=== PATIENT | female | born 1970 | race Caucasian/White ===

== ENCOUNTER 2017-12-28 19:01 | Emergency (ER) | payer OTHER ==
[~2017-12-28] VITALS: Ht 167.6 cm; Wt 79.4 kg
[~2017-12-28 19:01] MED LIST: AFRIN NASAL SPR30 ML NASAL; BACTRIM DS TAB1 EAC1 ORAL; CHLOROTHIAZIDE250 MG PO; CYCLOBENZAPRINE10 MG ORAL; IBUPROFEN600 MG ORAL; NAPROSYN500 M1 ORAL; TRAMADOL HCL50 MG ORAL; VICODIN 5-5001 EACH PO; [UNRECOGNIZED DRUG - REMARK]
--- NOTE | 2017-12-28 19:19 | Emergency Room Report ---
History of Present Illness General Chief Complaint: Nosebleed Source: Patient, Medical Record Present Illness HPI Patient presents with complaints of right-sided epistaxis Started earlier prior to arrival That has now subsided after minimal pressure Patient also reports that she was having a headache and that she feels her blood pressure is likely high Denies any change in medications recently she reports that her physician has told her that her blood pressure is high because she worse at night times Denies any chest pain or shortness of breath denies any focal weakness Allergies: Coded Allergies: No Known Allergies (Unverified , 10/20/12) Patient History Past Medical History: see triage record Pertinent Family History: none Last Menstrual Period: 12/20/17 Reviewed Nursing Documentation: PMH: Agreed; PSxH: Agreed Nursing Documentation-PMH Past Medical History: No History, Except For Hx Hypertension: Yes Hx Diabetes: Yes Review of Systems All Other Systems: negative except mentioned in HPI Physical Exam Vital Signs Date Time Temp Pulse Resp B/P (MAP) Pulse Ox O2 Delivery O2 Flow Rate FiO2 12/28/17 19:05 97.9 72 18 203/108 96 Room Air 97.9 Sp02 EP Interpretation: reviewed, normal General Appearance: well appearing, no apparent distress Head: normocephalic, atraumatic Eyes: bilateral eye PERRL, bilateral eye EOMI ENT: hearing grossly normal, normal pharynx, TMs + canals normal, uvula midline , other - Evidence of some crusting in the right anterior nasal chamber no signs of active hemorrhage no septal hematoma Neck: full range of motion, supple, no meningismus, no bony tend Respiratory: lungs clear, normal breath sounds, no rhonchi, no respiratory distress, no retraction, no accessory muscle use Cardiovascular #1: normal peripheral pulses, regular rate, rhythm, no edema, no gallop, no JVD, no murmur Gastrointestinal: normal bowel sounds, non tender, soft, no mass, no organomegaly, non-distended, no guarding, no hernia, no pulsatile mass, no rebound Genitourinary: no CVA tenderness Musculoskeletal: normal inspection Neurologic: oriented x3, responsive, evs attendant III-XII nml as tested, motor strength/ tone normal, sensory intact Psychiatric: mood/affect normal Skin: normal color, no rash, warm/dry, palpation normal Lymphatic: normal inspection, no adenopathy Procedures Additional Procedure Procedure Narrative Evaluation of the right nostril reveals some crusting on the anterior nasal area No active hemorrhage is seen Patient did have silver nitrate applied to the area Tolerated the procedure well Medical Decision Making Diagnostic Impression: Primary Impression: Epistaxis Additional Impression: Hypertension ER Course Patient's epistaxis is controlled as noted in the note Patient remained otherwise a symptomatically that Headache has also improved Daughter now arrives reports that the patient usually has emotional upset when her blood pressure goes up and similar episode happened again prior to this episode Patient's blood pressure is improving Headache is also improved patient has had blood work in the computer from past and this was not repeated Patient has appropriate outpatient follow-up she was recommended and encouraged to document blood pressure 2-3 times a day in order to follow-up with primary physician for possible change in medication Rhythm Strip Diag. Results EP Interpretation: yes Rate: 77 Rhythm: NSR, no PVC's, no ectopy Last Vital Signs Date Time Temp Pulse Resp B/P (MAP) Pulse Ox O2 Delivery O2 Flow Rate FiO2 4/18 19:05 97.9 72 18 203/108 96 Room Air 97.9 Status: improved Disposition: HOME, SELF-CARE Condition: Improved Patient Instructions: Nosebleed, [id number] Additional Instructions: Patient is provided with the discharge instructions notified to follow up with primary doctor in the next 2-3 days otherwise return to the er with any worsening symptoms. Please note that this report is being documented using [employer] technology. This can lead to erroneous entry secondary to incorrect interpretation by the dictating instrument. Zayra Cortes DO Dec 28, 2017 19:19
[2017-12-28 19:20] VITALS: BP 199/100
[2017-12-28] MEDS ORDERED: Silver Nitrate Stick TOPIC ONE ×2 (19:27→19:30)
[2017-12-28] MEDS ORDERED: Enalapril 5mg tab ORAL ONE (19:30)
[2017-12-28 20:11] VITALS: BP 190/95
== END 2017-12-28 20:45 | disposition home or self-care (01) ==
LOC: EMR 20:38
DX: R04.0 Epistaxis (principal); I10 Essential (primary) hypertension; E11.9 Type 2 diabetes mellitus without complications
CPT/HCPCS: 99283

== ENCOUNTER 2017-12-30 09:05 | Emergency (ER) | payer OTHER ==
[~2017-12-30] VITALS: Ht 154.9 cm; Wt 78.9 kg
[2017-12-30 09:32] VITALS: BP 174/93
[2017-12-30] MEDS ORDERED: METFORMIN HCL500 M4 ORAL (09:37)
--- NOTE | 2017-12-30 09:47 | Emergency Room Report ---
History of Present Illness General Chief Complaint: Nosebleed Source: Patient Present Illness HPI 47-year-old female history of hypertension presenting with right-sided epistaxis and chest pressure. Patient states that for the last 4 days she has intermittently had some bleeding from her right nostril. That stopped spontaneously. Patient states that she has on aspirin but the last and to take it was yesterday. Also complaining of intermittent chest pains the last 4 days , comes and goes, nonexertional. No shortness of breath no palpitations. No history of DVT or PE. Last stress test unknown. No fever chills cough nausea vomiting diarrhea Allergies: Coded Allergies: No Known Allergies (Unverified , 10/20/12) Patient History Past Medical History: see triage record Past Surgical History: none Pertinent Family History: none Reviewed Nursing Documentation: PMH: Agreed; PSxH: Agreed Nursing Documentation-PMH Past Medical History Deferred: Pt Cognitively Impaired Hx Hypertension: Yes Hx Diabetes: Yes Review of Systems All Other Systems: negative except mentioned in HPI Physical Exam Vital Signs Date Time Temp Pulse Resp B/P (MAP) Pulse Ox O2 Delivery O2 Flow Rate FiO2 12/30/17 09:15 60 18 174/93 100 Room Air 12/30/17 09:32 98.2 98.2 Sp02 EP Interpretation: reviewed, normal General Appearance: normal inspection, well appearing, no apparent distress, alert, GCS 15, non-toxic Head: normocephalic, atraumatic Eyes: bilateral eye normal inspection, bilateral eye PERRL, bilateral eye EOMI ENT: other - Right nostril with dried blood, no active bleeding, no blood in the posterior pharynx Neck: normal inspection, full range of motion, supple Respiratory: normal inspection, lungs clear, normal breath sounds, no respiratory distress, no retraction, no wheezing, speaking full sentences, chest symmetrical Cardiovascular #1: normal inspection, regular rate, rhythm, no edema, normal capillary refill Cardiovascular #2: 2+ radial (R), 2+ radial (L) Gastrointestinal: normal inspection, non tender, soft, non-distended, no guarding Musculoskeletal: normal inspection, back normal, normal range of motion, non- tender Neurologic: normal inspection, alert, oriented x3, responsive, motor strength/ tone normal, sensory intact, normal gait, speech normal Psychiatric: normal inspection, judgement/insight normal, memory normal Skin: normal inspection, normal color, no rash, warm/dry, well hydrated, normal turgor Medical Decision Making Diagnostic Impression: Primary Impression: Mild epistaxis Additional Impression: Chest pressure ER Course 47 yo F with epistaxis, and chest pressure DDX: Chest pain, costochondritis ACS vs. CHF vs. pneumonia vs. gastritis/GERD vs. pneumothorax Perc negative Plan: IV access, obtain labs including troponin, EKG, CXR Hold aspirin due to epistaxis, and patient on in severe chest pain ER course: Patient remained chest pain free during ED stay. Nasal clip placed on patient, although patient did not have any active epistaxis stable for DC home Disposition: Patient will be discharged to home. Strict precautions discussed with patient on when to emergently return to the ED : this includes worsening/severe chest pain, palpitations, shortness of breath, syncopal episodes, fever or chills, which may indicate severe illness. Patient verbalized understanding. Patient instructed to follow up with their PMD within the next 2 days. Patient also instructed to follow up with a waste/materials exchange specialist within 2 days for possible outpatient stress test. Patient agrees with plan. Please note that this Emergency Department Report was dictated using [employer] technology software, occasionally this can lead to erroneous entry secondary to interpretation by the dictation equipment. EKG Diagnostic Results EP Interpretation: Yes Rate: normal Rhythm: NSR ST Segments: No acute changes ASA given to patient: no Rhythm Strip EP Interpretation: Yes Rate: 70 Rhythm: NSR, no PVCs, no ectopy Chest X-ray CXR: Ordered: Yes 1 view Indication: Chest pain EP interpretation: Yes Interpretation: mild cardiomegaly Impression: mild cardiomegaly Electronically signed by Sheron Dallas MD Laboratory Tests Test 12/30/17 09:46 White Blood Count 5.9 K/UL (4.8-10.8) Red Blood Count 4.94 M/UL (4.20-5.40) Hemoglobin 13.9 G/DL (12.0-16.0) Hematocrit 41.3 % (37.0-47.0) Mean Corpuscular Volume 84 FL (80-99) Mean Corpuscular Hemoglobin 28.2 PG (27.0-31.0) Mean Corpuscular Hemoglobin Concent 33.7 G/DL (32.0-36.0) Red Cell Distribution Width 11.9 % (11.6-14.8) Platelet Count 342 K/UL (150-450) Mean Platelet Volume 7.8 FL (6.5-10.1) Neutrophils (%) (Auto) 55.1 % (45.0-75.0) Lymphocytes (%) (Auto) 31.2 % (20.0-45.0) Monocytes (%) (Auto) 8.5 % (1.0-10.0) Eosinophils (%) (Auto) 3.6 % (0.0-3.0) H Basophils (%) (Auto) 1.7 % (0.0-2.0) Urine Color Pale yellow Urine Appearance Slightly cloudy Urine pH 7 (4.5-8.0) Urine Specific Kyle 1.005 (1.005-1.035) Urine Protein Negative (NEGATIVE) Urine Glucose (UA) Negative (NEGATIVE) Urine Ketones Negative (NEGATIVE) Urine Occult Blood Negative (NEGATIVE) Urine Nitrite Negative (NEGATIVE) Urine Bilirubin Negative (NEGATIVE) Urine Urobilinogen Normal MG/DL (0.0-1.0) Urine Leukocyte Esterase 3+ (NEGATIVE) H Urine RBC 0-2 /HPF (0 - 2) Urine WBC 5-10 /HPF (0 - 2) H Urine Squamous Epithelial Cells Few /LPF (NONE/OCC) Urine Bacteria Occasional /HPF (NONE) Sodium Level 139 MMOL/L (136-145) Potassium Level 3.5 MMOL/L (3.5-5.1) Chloride Level 104 MMOL/L (98-107) Carbon Dioxide Level 29 MMOL/L (21-32) Blood Urea Nitrogen 17 mg/dL (7-18) Creatinine 0.6 MG/DL (0.55-1.30) Estimate Glomerular Filtration Rate > 60 mL/min (>60) Glucose Level 122 MG/DL (74-106) H Calcium Level 8.6 MG/DL (8.5-10.1) Total Bilirubin 0.3 MG/DL (0.2-1.0) Aspartate Amino Transferase (AST) 23 U/L (15-37) Alanine Aminotransferase (ALT) 28 U/L (12-78) Alkaline Phosphatase 124 U/L (46-116) H Troponin I 0.000 ng/mL (0.000-0.056) Pro-B-Type Natriuretic Peptide 49 pg/mL (0-125) Total Protein 7.3 G/DL (6.4-8.2) Albumin 3.5 G/DL (3.4-5.0) Globulin 3.8 g/dL Albumin/Globulin Ratio 0.9 (1.0-2.7) L Last Vital Signs Date Time Temp Pulse Resp B/P (MAP) Pulse Ox O2 Delivery O2 Flow Rate FiO2 12/30/17 09:32 98.2 18 174/93 100 Room Air 98.2 12/30/17 09:15 60 Disposition: HOME, SELF-CARE Condition: Improved Referrals: [facility],REFERRING (PCP) Patient Instructions: Noselars, [id number] Sheron Dallas M.D. Dec 30, 2017 09:47
[2017-12-30 10:08] LABS: APPEARANCE,URINE SLIGHTLY CLOUDY; BASOPHILS % (AUTO) 1.7 % (0.0-2.0); BILIRUBIN, URINE NEGATIVE (NEGATIVE); COLOR,URINE PALE YELLOW; EOSINOPHILS % (AUTO) 3.6 % (0.0-3.0); GLUCOSE, URINE (UA) NEGATIVE (NEGATIVE); HEMATOCRIT 41.3 % (37.0-47.0); HEMOGLOBIN 13.9 G/DL (12.0-16.0); KETONES,URINE NEGATIVE (NEGATIVE); LEUKOCYTE ESTERASE ,URINE 3+ (NEGATIVE); LYMPHOCYTES % (AUTO) 31.2 % (20.0-45.0); MEAN CORPUSCULAR VOLUME 84 FL (80-99); MONOCYTES % (AUTO) 8.5 % (1.0-10.0); NEUTROPHILS % (AUTO) 55.1 % (45.0-75.0); NITRITE,URINE NEGATIVE (NEGATIVE); PH,URINE 7 (4.5-8.0); PLATELET COUNT 342 K/UL (150-450); PROTEIN,URINE NEGATIVE (NEGATIVE); RED BLOOD COUNT 4.94 M/UL (4.20-5.40); RED CELL DISTRIBUTION WIDTH 11.9 % (11.6-14.8); UROBILINOGEN,URINE NORMAL MG/DL (0.0-1.0); WHITE BLOOD COUNT 5.9 K/UL (4.8-10.8)
[2017-12-30 10:20] VITALS: BP 149/83
[2017-12-30 10:26] LABS: ALANINE AMINOTRANSFERASE 28 U/L (12-78); ALBUMIN 3.5 G/DL (3.4-5.0); ALBUMIN/GLOBULIN RATIO 0.9 (1.0-2.7); ALKALINE PHOSPHATASE 124 U/L (46-116); ASPARTATE AMINO TRANSFERASE 23 U/L (15-37); BILIRUBIN,TOTAL 0.3 MG/DL (0.2-1.0); BLOOD UREA NITROGEN 17 mg/dL (7-18); CALCIUM 8.6 MG/DL (8.5-10.1); CARBON DIOXIDE 29 MMOL/L (21-32); CREATININE 0.6 MG/DL (0.55-1.30)
[2017-12-30 10:29] LABS: CHLORIDE 104 MMOL/L (98-107); POTASSIUM 3.5 MMOL/L (3.5-5.1); SODIUM 139 MMOL/L (136-145)
[2017-12-30 10:40] VITALS: BP 149/83
--- NOTE | 2017-12-30 10:52 | Diagnostic Imaging Report ---
Indication: Dyspnea Comparison: None A single view chest radiograph was obtained. Findings: Cardiomediastinal appearance is within normal limits for age. Pulmonary vascularity is appropriate. The diaphragmatic contour is smooth and costophrenic angles are sharp. No pleural effusions are identified. The bones are unremarkable. Impression: No acute findings
== END 2017-12-30 10:56 | disposition home or self-care (01) ==
LOC: EMR 09:29
DX: R04.0 Epistaxis (principal); R07.89 Other chest pain; E11.9 Type 2 diabetes mellitus without complications; I10 Essential (primary) hypertension
CPT/HCPCS: 36415; 71045; 80053; 81003; 83880; 84484; 85025; 93005; 99283

== ENCOUNTER 2019-12-07 03:15 | Emergency (ER) | payer OTHER ==
[~2019-12-07] VITALS: Ht 154.9 cm; Wt 70.3 kg
[~2019-12-07 03:15] MED LIST changes: +METFORMIN HCL500 M4 ORAL
[2019-12-07 03:24] VITALS: BP 194/117
[2019-12-07] MEDS ORDERED: AMOXICILLIN500 MG ORAL (03:37)
[2019-12-07] MEDS ORDERED: ACETAMINOPHEN-1 EAC1 ORAL (03:37)
[2019-12-07 03:44] VITALS: BP 194/117
--- NOTE | 2019-12-07 22:20 | Emergency Room Report ---
History of Present Illness General Chief Complaint: Toothache Source: Patient Present Illness HPI 49-year-old female presents ED for evaluation. Complaining of tooth pain. States she needs to go see a dentist but has not been able to yet. Pain is dull , 8 out of 10, nonradiating. Localized to left upper jaw. Denies fevers or chills. Has had pain for the last several weeks. No other aggravating relieving factors. Denies any other associated symptoms COVID-19 risk:Travel to affect: No Allergies: Coded Allergies: No Known Allergies (Unverified , 10/20/12) Patient History Past Medical History: DM, HTN Past Surgical History: none Pertinent Family History: none Social History: Denies: smoking, alcohol use, drug use Now: No Immunizations: UTD Reviewed Nursing Documentation: PMH: Agreed; PSxH: Agreed Nursing Documentation-PMH Hx Hypertension: Yes Hx Diabetes: Yes Review of Systems All Other Systems: negative except mentioned in HPI Physical Exam Vital Signs Date Time Temp Pulse Resp B/P (MAP) Pulse Ox O2 Delivery O2 Flow Rate FiO2 12/07/19 03:24 98.1 89 20 194/117 96 Room Air Sp02 EP Interpretation: reviewed, normal General Appearance: no apparent distress, alert, GCS 15, non-toxic Head: normocephalic, atraumatic Eyes: bilateral eye normal inspection, bilateral eye PERRL ENT: hearing grossly normal, normal pharynx, no angioedema, normal voice, other - multiple dental caries. cracked tooth in L upper jaw. no abscess Neck: full range of motion, supple/symm/no masses Respiratory: chest non-tender, lungs clear, normal breath sounds, speaking full sentences Cardiovascular #1: regular rate, rhythm, no edema Cardiovascular #2: 2+ carotid (R), 2+ carotid (L), 2+ radial (R), 2+ radial (L) , 2+ dorsalis pedis (R), 2+ dorsalis pedis (L) Gastrointestinal: normal bowel sounds, non tender, soft, non-distended, no guarding, no rebound Rectal: deferred Genitourinary: normal inspection, no CVA tenderness Musculoskeletal: back normal, normal range of motion, gait/station normal, non- tender Neurologic: alert, motor strength/tone normal, oriented x3, sensory intact, responsive, speech normal Psychiatric: judgement/insight normal, memory normal, mood/affect normal, no suicidal/homicidal ideation Reflexes: 3+ bicep (R), 3+ bicep (L), 3+ tricep (R), 3+ tricep (L), 3+ knee (R) , 3+ knee (L) Skin: no rash Lymphatic: no adenopathy Medical Decision Making Diagnostic Impression: Primary Impression: Toothache ER Course 49-year-old female presents ED complaining of tooth pain. Cracked tooth, dental abscess, cavity Patient placed on stretcher. After initial history, physical exam reveals a female in no distress. The tooth in question shows a crack but there is no pulp exposed. No surrounding abscess. No induration or swelling. I discussed findings with patient. Will discharge with prescription for antibiotics and pain meds. I will provide dental referrals. Safe for discharge for close outpatient follow-up Diagnosis- toothache Stable and discharged to home prescription for tylenol #3 and amoxicillin. Instructed to see dentist as a walk-in this week. Return to ED if symptoms recur or worse Last Vital Signs Date Time Temp Pulse Resp B/P (MAP) Pulse Ox O2 Delivery O2 Flow Rate FiO2 12/07/19 03:44 98.1 20 194/117 96 Room Air 12/07/19 03:24 65 Status: improved Disposition: HOME, SELF-CARE Condition: Stable Scripts Amoxicillin* (AMOXIL*) 500 Mg Capsule 500 MG ORAL THREE TIMES A DAY, #21 CAP Prov: Josh Greenwood MD 12/07/19 Acetaminophen With Codeine (T#3) (TYLENOL #3 TAB*) Y Tab 1 TAB ORAL Q8H PRN for For Pain for 3 Days, #12 TAB Prov: Josh Greenwood MD 12/07/19 Referrals: [facility],REFERRING (PCP) [facility] INFO: New Patient Screening: Mon- 8am-1pm Mon- 9am -5pm and Mon 2pm-5pm [facility](age 2-12) - Orthodontic Clinic - Hours: Mon,Mon,, 8:15am and 1pm (new patient screening), . 1pm. Emergency clinic Monday - Monday 8:30am and 1pm, . 1pm. *Call to check if clinic is open; No appointment necessary for the first visit ( new patient screening), Arrive 15-30 minutes early as it is first come, first serve. Patient Instructions: Dental Pain Josh Greenwood MD Dec 07, 2019 22:20
== END 2019-12-07 03:50 | disposition home or self-care (01) ==
LOC: EMR 03:47
DX: K08.89 Other specified disorders of teeth and supporting structures (principal); E11.9 Type 2 diabetes mellitus without complications; I10 Essential (primary) hypertension
CPT/HCPCS: 99282

== ENCOUNTER 2020-01-18 20:10 | Emergency (ER) | payer OTHER ==
[~2020-01-18] VITALS: Ht 154.9 cm; Wt 70.3 kg
[~2020-01-18 20:10] MED LIST changes: +ACETAMINOPHEN-1 EAC1 ORAL; +AMOXICILLIN500 MG ORAL
--- NOTE | 2020-01-18 20:35 | NUR ---
ED Nurse Note: Walked in to ER from home c/o bilat feet and hand itchiness x2days. does not present with redness or swelling. also states pain on bilat feet when walking 7/10 aching. AAO x4, VSS at this time
--- NOTE | 2020-01-18 20:51 | Diagnostic Imaging Report ---
EXAM: XR Chest, 1 View CLINICAL HISTORY: WEAK TECHNIQUE: Frontal view of the chest. COMPARISON: No relevant prior studies available. FINDINGS: Lungs: Unremarkable. No consolidation. Pleural space: Unremarkable. No pneumothorax. Heart: Unremarkable. No cardiomegaly. Mediastinum: Unremarkable. Bones/joints: Unremarkable. IMPRESSION: 1. No acute cardiopulmonary disease. 2. If there is continued concern recommend frontal and lateral chest radiographs or CT.
[2020-01-18] MEDS ORDERED: DiphenhydrAMINE & Zinc 28g Cream TOPIC ONE (21:15)
--- NOTE | 2020-01-18 21:15 | Emergency Room Report ---
History of Present Illness General Chief Complaint: Skin Rash/Abscess Source: Patient, Medical Record Present Illness HPI Disclaimer: Please note that this report is being documented using [employer] technology. This can lead to erroneous entry secondary to incorrect interpretation by the dictating instrument. HPI: 49-year-old female presents for evaluation of itching and swelling. She reports bilateral lower extremity swelling and itching over the feet over the past day. Also noted some swelling in the hands. Swelling is now resolved but itching persists. No chemical exposure, change in soaps, shampoos, socks or other obvious triggers. No history of allergies. He denies pain or injury in the extremities. Able to move all digits. Notes still some slight swelling in the hands but no itching in the hands. Swelling in the feet is now resolved. Denies history of CHF. PMH: Diabetes, depression PSH: Reviewed Allergies: Denies Social Hx: Denies Allergies: Coded Allergies: No Known Allergies (Unverified , 10/20/12) COVID-19 Screening Contact w/high risk pt: No Recent Travel to affected area: No Experienced COVID-19 symptoms?: No Nursing Documentation-PMH Hx Hypertension: Yes Hx Diabetes: Yes Review of Systems All Other Systems: negative except mentioned in HPI Physical Exam Vital Signs Date Time Temp Pulse Resp B/P (MAP) Pulse Ox O2 Delivery O2 Flow Rate FiO2 01/18/20 20:19 97.9 74 18 146/96 (113) 99 Room Air General: Awake and alert, no acute distress HEENT: NC/AT. EOMI. Resp: Normal work of breathing Skin: Intact. No abrasions, laceration or rash over the exposed skin. No excoriations, no blistering, no sloughing, Nikolsky negative. No erythema or warmth MSK: Normal tone and bulk. Moving all extremities. No obvious deformity. No lower extremity edema. 2+ PT pulses. No edema in the upper extremities. Full range of motion of the digits and wrist. Neuro: Awake and alert. Mentating appropriately Medical Decision Making Diagnostic Impression: Primary Impression: Itching ER Course 49-year-old female presents for evaluation of itching and swelling in the lower extremities and hands. Differential includes was not limited to dermatitis, cellulitis, abscess, allergic reaction, electrolyte abnormality, kidney failure , medication side effect to name a few. Labs were ordered prior to my evaluation of the patient. They have returned within normal limits. No evidence of fluid overload as evidenced by a normal BNP and troponin, no elevation in white count, electrolytes and kidney function within normal limits. Patient was given Benadryl cream with some improvement in her symptoms. Will prescribe additional Benadryl cream for pruritus. No evidence of cellulitis or erysipelas at this time. Do not believe she requires antibiotics however symptoms persist or if they suddenly change she should return to the emergency department for reevaluation. She understands and agrees with this treatment plan will be discharged home. Last Vital Signs Date Time Temp Pulse Resp B/P (MAP) Pulse Ox O2 Delivery O2 Flow Rate FiO2 01/18/20 20:19 97.9 74 18 146/96 (113) 99 Room Air Disposition: HOME, SELF-CARE Condition: Stable Scripts Diphenhydramine Hcl/Zinc Acet (BENADRYL ITCH STOPPING CRM) 28.3 Gm Cream..g. 28.3 GM TP TID for 5 Days, GM Prov: Josue Zhang MD 01/18/20 Referrals: [facility],REFERRING (PCP) Josue Zhang MD Jan 18, 2020 21:15
[2020-01-18 21:25] LABS: BASOPHILS % (AUTO) 1.3 % (0.0-2.0); EOSINOPHILS % (AUTO) 4.4 % (0.0-3.0); LYMPHOCYTES % (AUTO) 23.1 % (20.0-45.0); MEAN CORPUSCULAR VOLUME 87 FL (80-99); NEUTROPHILS % (AUTO) 58.2 % (45.0-75.0); PLATELET COUNT 365 K/UL (150-450); RED BLOOD COUNT 3.93 M/UL (4.20-5.40); RED CELL DISTRIBUTION WIDTH 12.3 % (11.6-14.8); WHITE BLOOD COUNT 6.4 K/UL (4.8-10.8)
[2020-01-18] MEDS ORDERED: BENADRYL ITCH28.3 G1 TP (21:40)
[2020-01-18 21:42] VITALS: BP 146/96
[2020-01-18 21:51] LABS: ANION GAP 8 mmol/L (5-15); BLOOD UREA NITROGEN 17 mg/dL (7-18); CALCIUM 8.7 MG/DL (8.5-10.1); CARBON DIOXIDE 28 MMOL/L (21-32); CHLORIDE 107 MMOL/L (98-107); CREATININE 0.6 MG/DL (0.55-1.30); POTASSIUM 3.7 MMOL/L (3.5-5.1); SODIUM 143 MMOL/L (136-145)
[2020-01-18 22:02] LABS: ALANINE AMINOTRANSFERASE 43 U/L (12-78); ALBUMIN 3.3 G/DL (3.4-5.0); ALBUMIN/GLOBULIN RATIO 0.9 (1.0-2.7); ALKALINE PHOSPHATASE 102 U/L (46-116); ASPARTATE AMINO TRANSFERASE 28 U/L (15-37); BILIRUBIN,TOTAL 0.2 MG/DL (0.2-1.0)
[2020-01-18 22:10] VITALS: BP 146/96
--- NOTE | 2020-01-18 22:10 | NUR ---
ER DISCHARGE NOTE: Patient is cleared to be discharged per ERMD, pt is aox4, on room air, with stable vital signs. pt was given dc and prescription instructions, pt was able to verbalize understanding, pt id band and iv site removed without complications. pt is able to ambulate with steady gait. pt took all belongings.
== END 2020-01-18 22:10 | disposition home or self-care (01) ==
LOC: EMR 20:56
DX: L29.9 Pruritus, unspecified (principal); E11.9 Type 2 diabetes mellitus without complications; I10 Essential (primary) hypertension; F32.9 Major depressive disorder, single episode, unspecified
CPT/HCPCS: 36415; 71045; 80053; 83735; 83880; 84484; 85025; 99284

== ENCOUNTER → 2020-11-21 | Emergency (ER) | payer OTHER ==
[~2020-11-21] VITALS: Ht 154.9 cm; Wt 69.9 kg
[~2020-11-21] MED LIST changes: +AMLODIPINE BESYL5 MG ORAL; +BENADRYL ITCH28.3 G1 TP; +CEPHALEXIN500 MG ORAL; +Dicyclomine HCl 10mg/5ml oral soln ORAL ONE; +Lidocaine 2% Visc 15ml soln ORAL ONE; +Morphine Sulfate 2mg/ml Inj(IV/IM USE ONLY) IVP ONE; +Mylanta II UD 30ml ORAL ONE; +Omnipaque-300 100ml vial INJ PRN; +cefTRIAXone 1 GM in NS 55 ML IVPB ONE
[2020-11-21 19:58] VITALS: BP 145/89
--- NOTE | 2020-11-21 19:58 | Emergency Room Report ---
History of Present Illness General Chief Complaint: Abdominal Pain Source: Patient (Josue Zhang MD) Present Illness HPI Disclaimer: Please note that this report is being documented using [employer] technology. This can lead to erroneous entry secondary to incorrect interpr etation by the dictating instrument. HPI: 50-year-old female presents for abdominal pain. She reports epigastric sharp pain that is nonradiating beginning last night after eating dinner. Somewhat worse with laying down. It has been intermittent throughout the day but getting worse this evening. She denies nausea, vomiting, diarrhea. Denies fever or chills. Reports some loss of appetite due to the pain. She also feels increased gas and is belching more than usual. Denies chest pain, palpitations or shortness of breath. Denies prior abdominal surgeries. Denies drug or alcohol use. Does not regularly take antacids. PMH: Hypertension PSH: Denied Allergies: Denied Social Hx: Denied (Josue Zhang MD) Allergies: Coded Allergies: No Known Allergies (Unverified , 10/20/12) COVID-19 Screening Contact w/high risk pt: No Recent Travel to affected area: No Experienced COVID-19 symptoms?: No COVID-19 Testing performed [employer]: Yes - 2 week ago negat COVID-19 Screening: Negative COVID-19 COVID-19 Testing Source: nasal (Josue Zhang MD) Nursing Documentation-PMH Hx Hypertension: Yes Hx Diabetes: Yes (Josue Zhang MD) Review of Systems All Other Systems: negative except mentioned in HPI (Josue Zhang MD) Physical Exam Vital Signs Date Time Temp Pulse Resp B/P (MAP) Pulse Ox O2 Delivery O2 Flow Rate FiO2 11/21/20 19:44 98.2 64 16 201/108 (139) 96 Room Air General: Awake and alert, no acute distress HEENT: NC/AT. EOMI. Cardiovascular: RRR. S1 and S2 normal. No murmur appreciated Resp: Normal work of breathing. No cough, wheezing or crackles appreciated Abdomen: Abdomen is soft, nondistended. Mild tenderness in the epigastrium. No tenderness in the left or right upper quadrant. No guarding. No rebound. Negative Alvarez's. No tenderness in the lower quadrants. No flank tenderness. Skin: Intact. No abrasions, laceration or rash over the exposed skin MSK: Normal tone and bulk. Moving all extremities. No obvious deformity. Neuro: Awake and alert. Mentating appropriately. (Josue Zhang MD) Medical Decision Making Diagnostic Impression: Primary Impression: Abdominal pain Qualified Codes: R10.13 - Epigastric pain Additional Impression: UTI (urinary tract infection) Qualified Codes: N30.00 - Acute cystitis without hematuria ER Course 50-year-old female presents for evaluation of epigastric pain the past day. Differential includes is not limited to gastritis, gastroenteritis, cholecystitis, pancreatitis, hepatitis, nephrolithiasis, UTI, occult ischemia among others. EKG shows normal sinus rhythm without evidence of ischemia. Labs thus far have returned unremarkable. Patient received GI cocktail but no improvement in pain. Will order CT. Urinalysis is pending. Will sign out to oncoming physician pending completion of work-up and ultimate disposition. (Jouse Zhang MD) ER Course Please see above note. Patient endorsed to me as continued abdominal pain. CT ordered. Pain started in early AM. Colicky and up to 10/10. Had felt chills, no fever. Did not take any medicine for pain. No N/V/D. Moved bowels at 7 pm = normal. H/O DM and HTN. WBC minimally elevated, no left shift. Glucose 146. CT normal. UA with pyuria. Rocephin ordered. Pain now 5/10 and declining further pain medication. Abdomen soft, no guarding. Discussed outpatient observation and further pain treatment. Patient stable for outpatient observation and treatment. Laboratory Tests Test 11/21/20 20:06 White Blood Count 11.0 K/UL (4.8-10.8) H Red Blood Count 4.89 M/UL (4.20-5.40) Hemoglobin 13.6 G/DL (12.0-16.0) Hematocrit 41.1 % (37.0-47.0) Mean Corpuscular Volume 84 FL (80-99) Mean Corpuscular Hemoglobin 27.8 PG (27.0-31.0) Mean Corpuscular Hemoglobin Concent 33.0 G/DL (32.0-36.0) Red Cell Distribution Width 14.4 % (11.6-14.8) Platelet Count 285 K/UL (150-450) Mean Platelet Volume 7.8 FL (6.5-10.1) Neutrophils (%) (Auto) 66.5 % (45.0-75.0) Lymphocytes (%) (Auto) 19.0 % (20.0-45.0) L Monocytes (%) (Auto) 11.0 % (1.0-10.0) H Eosinophils (%) (Auto) 2.4 % (0.0-3.0) Basophils (%) (Auto) 1.1 % (0.0-2.0) Urine Color Pale yellow Urine Appearance Slightly cloudy Urine pH 7 (4.5-8.0) Urine Specific [place] 1.005 (1.005-1.035) Urine Protein Negative (NEGATIVE) Urine Glucose (UA) 1+ (NEGATIVE) H Urine Ketones Negative (NEGATIVE) Urine Blood 4+ (NEGATIVE) H Urine Nitrite Negative (NEGATIVE) Urine Bilirubin Negative (NEGATIVE) Urine Urobilinogen Normal MG/DL (0.0-1.0) Urine Leukocyte Esterase 3+ (NEGATIVE) H Urine RBC 5-10 /HPF (0 - 2) H Urine WBC 20-30 /HPF (0 - 2) H Urine Squamous Epithelial Cells Many /LPF (NONE/OCC) H Urine Amorphous Sediment Many /LPF (NONE) H Urine Bacteria Moderate /HPF (NONE) H Sodium Level 141 MMOL/L (136-145) Potassium Level 4.2 MMOL/L (3.5-5.1) Chloride Level 104 MMOL/L (98-107) Carbon Dioxide Level 31 MMOL/L (21-32) Anion Gap 6 mmol/L (5-15) Blood Urea Nitrogen 8 mg/dL (7-18) Creatinine 0.7 MG/DL (0.55-1.30) Estimated Glomerular Filtration Rate > 60 mL/min (>60) Glucose Level 146 MG/DL (74-106) H Calcium Level 9.1 MG/DL (8.5-10.1) Total Bilirubin 0.4 MG/DL (0.2-1.0) Aspartate Amino Transferase (AST) 27 U/L (15-37) Alanine Aminotransferase (ALT) 31 U/L (12-78) Alkaline Phosphatase 124 U/L (46-116) H Troponin I 0.008 ng/mL (0.000-0.056) Total Protein 7.5 G/DL (6.4-8.2) Albumin 3.9 G/DL (3.4-5.0) Globulin 3.6 g/dL Albumin/Globulin Ratio 1.1 (1.0-2.7) Lipase 156 U/L (73-393) (Foster Harris MD) EKG Diagnostic Results Troponin ordered: Yes When was troponin ordered?: Nov 21, 2020 EKG Time: 19:59 Rate: normal Rhythm: NSR ST Segments: no acute changes Other Impression Sinus rhythm, normal axis, normal intervals, no ST segment changes. (Josue Zhang MD) Rhythm Strip Diag. Results Rhythm Strip Time: 19:59 EP Interpretation: yes Rate: 60s Rhythm: NSR, no PVC's, no ectopy (Josue Zhang MD) CT/MRI/US Diagnostic Results CT/MRI/US Diagnostic Results : Imaging Test Ordered: abd/pelvis Impression No acute findings in the abdomen or pelvis. (Foster Harris MD) Last Vital Signs Date Time Temp Pulse Resp B/P (MAP) Pulse Ox O2 Delivery O2 Flow Rate FiO2 11/21/20 19:44 98.2 64 16 201/108 (139) 96 Room Air (Josue Zhang MD) Last Vital Signs Date Time Temp Pulse Resp B/P (MAP) Pulse Ox O2 Delivery O2 Flow Rate FiO2 11/22/20 00:02 97.1 78 17 138/76 98 Room Air Status: improved (Foster Harris MD) Disposition: HOME, SELF-CARE Condition: Improved Scripts Acetaminophen With Codeine (T#3) (TYLENOL #3 TAB*) Y Tab 1 TAB ORAL Q6HR PRN for For Pain, #10 TAB Prov: Foster Harris MD 11/21/20 Cephalexin* (KEFLEX*) 500 Mg Capsule 500 MG ORAL EVERY 6 HOURS, #28 CAP Prov: Foster Harris MD 11/21/20 Josue Zhang MD Nov 21, 2020 19:58 Foster Harris MD Nov 21, 2020 21:26
--- NOTE | 2020-11-21 20:01 | NUR ---
ED Nurse Note: Pt walked into the ed due to abd pain x 2days. pt denied emesis or diarrhea. pt stated; she lost appetite. vitals are stable.
[2020-11-21 20:39] LABS: BASOPHILS % (AUTO) 1.1 % (0.0-2.0); EOSINOPHILS % (AUTO) 2.4 % (0.0-3.0); HEMATOCRIT 41.1 % (37.0-47.0); HEMOGLOBIN 13.6 G/DL (12.0-16.0); MEAN CORPUSCULAR VOLUME 84 FL (80-99); NEUTROPHILS % (AUTO) 66.5 % (45.0-75.0); PLATELET COUNT 285 K/UL (150-450); RED BLOOD COUNT 4.89 M/UL (4.20-5.40); RED CELL DISTRIBUTION WIDTH 14.4 % (11.6-14.8)
[2020-11-21 20:49] LABS: ANION GAP 6 mmol/L (5-15); BLOOD UREA NITROGEN 8 mg/dL (7-18); CALCIUM 9.1 MG/DL (8.5-10.1); CARBON DIOXIDE 31 MMOL/L (21-32); CHLORIDE 104 MMOL/L (98-107); CREATININE 0.7 MG/DL (0.55-1.30); POTASSIUM 4.2 MMOL/L (3.5-5.1); SODIUM 141 MMOL/L (136-145)
[2020-11-21 20:53] LABS: ALANINE AMINOTRANSFERASE 31 U/L (12-78); ALBUMIN 3.9 G/DL (3.4-5.0); ALBUMIN/GLOBULIN RATIO 1.1 (1.0-2.7); ALKALINE PHOSPHATASE 124 U/L (46-116); ASPARTATE AMINO TRANSFERASE 27 U/L (15-37); BILIRUBIN,TOTAL 0.4 MG/DL (0.2-1.0)
[2020-11-21 21:20] LABS: APPEARANCE,URINE SLIGHTLY CLOUDY; BILIRUBIN, URINE NEGATIVE (NEGATIVE); COLOR,URINE PALE YELLOW; GLUCOSE, URINE (UA) 1+ (NEGATIVE); KETONES,URINE NEGATIVE (NEGATIVE); LEUKOCYTE ESTERASE ,URINE 3+ (NEGATIVE); NITRITE,URINE NEGATIVE (NEGATIVE); PH,URINE 7 (4.5-8.0); PROTEIN,URINE NEGATIVE (NEGATIVE); UROBILINOGEN,URINE NORMAL MG/DL (0.0-1.0)
--- NOTE | 2020-11-21 21:58 | Diagnostic Imaging Report ---
EXAM: CT Abdomen and Pelvis With Intravenous Contrast CLINICAL HISTORY: ABD PAIN TECHNIQUE: Axial computed tomography images of the abdomen and pelvis with intravenous contrast. CTDI is 7.20 mGy and DLP is 368.00 mGy-cm. One or more of the following dose reduction techniques were used: automated exposure control, adjustment of the mA and/or kV according to patient size, use of iterative reconstruction technique. COMPARISON: No relevant prior studies available. FINDINGS: Lung bases: Unremarkable. No mass. No consolidation. ABDOMEN: Liver: Unremarkable. No mass. Gallbladder and bile ducts: Unremarkable. No calcified stones. No ductal dilation. Pancreas: Unremarkable. No mass. No ductal dilation. Spleen: Unremarkable. No splenomegaly. Adrenals: Unremarkable. No mass. Kidneys and ureters: Unremarkable. No solid mass. No hydronephrosis. Stomach and bowel: Unremarkable. No obstruction. No mucosal thickening. PELVIS: Appendix: No findings to suggest acute appendicitis. Bladder: Unremarkable. No mass. Reproductive: Unremarkable as visualized. ABDOMEN and PELVIS: Intraperitoneal space: Unremarkable. No free air. No significant fluid collection. Bones/joints: Chronic bilateral L5 pars defects with grade 1 anterolisthesis. No acute fracture. No dislocation. Soft tissues: Unremarkable. Vasculature: Unremarkable. No abdominal aortic aneurysm. Lymph nodes: Unremarkable. No enlarged lymph nodes. Tubes, lines and devices: Intrauterine device within the uterus. IMPRESSION: No acute findings in the abdomen or pelvis.
[2020-11-22 00:02] VITALS: BP 138/76
== END | disposition home or self-care (01) ==
LOC: EMR 20:00
DX: R10.13 Epigastric pain (principal); N30.00 Acute cystitis without hematuria; I10 Essential (primary) hypertension; E11.9 Type 2 diabetes mellitus without complications
CPT/HCPCS: 36415; 74177; 80053; 81003; 83690; 84484; 85025; 87086; 96365; 96375; 99284; J0696; J2270; Q9965